=== PATIENT | female | born 1995 | race Caucasian/White ===

== ENCOUNTER 2019-11-12 05:55 | Inpatient (IN) ==
[2019-11-12] MEDS ORDERED: ONDANSETRON 4 MG/2 ML VIAL IV PRN (06:02)
[2019-11-12] MEDS ORDERED: BUTORPHANOL 2 MG/ML VIAL IV PRN (06:02)
[2019-11-12] MEDS ORDERED: MEPERIDINE 50 MG/1 ML VIAL IV PRN (06:02)
[2019-11-12] MEDS ORDERED: OXYTOCIN/LR 20 UNIT/1,000 ML BAG IV SCH (06:30)
[2019-11-12] MEDS: LACTATED RINGERS 1,000 ML IV PRN ×2 (06:36→14:55)
[2019-11-12 07:04] LABS: Basophils % 0.2 % (0.0-0.8); Eosinophils # 0.1 10*3/uL (0.0-0.87); Eosinophils % 1.3 % (0.00-10.9); Hematocrit 38.4 VOL% (35.7-47.0); Hemoglobin 12.9 GM/DL (12.0-16.0); Immature Granulocytes % 0.4 %; Immature Granulocytes Absolute 0.04 #; Lymphocytes # 1.7 10*3/uL (1.4-4.0); Lymphocytes % 18.6 % (21.3-54.2); Mean Corpuscular HGB Conc 33.6 GM/DL (32-36); Mean Corpuscular Volume 89.1 FL (87-102); Mean Platelet Volume 11.8 FL (9.6-12.0); Monocytes % 6.9 % (1.7-12.7); Neutrophils % 72.6 % (38.7-73.9); Platelet Count 199 T/CUMM (130-400); Red Blood Count 4.31 MC/CUMM (3.8-5.5); Red Cell Distribution Width 12.8 % (9.3-17.3); White Blood Count 8.9 T/CUMM (4-12)
[2019-11-12 07:31] LABS: Albumin 2.7 G/DL (3.4-5.0); Bilirubin,Total 0.7 MG/DL (0.2-1.0); Osmolality,Calculated 273.5 MOS/KG (273-304); Total Protein 6.6 G/DL (6.4-8.3)
[2019-11-12] MEDS ORDERED: PROMETHAZINE 25 MG/1 ML VIAL IM ONE (08:51)
[2019-11-12] MEDS ORDERED: ONDANSETRON 4 MG/2 ML VIAL IV ONE (08:51)
[2019-11-12] MEDS ORDERED: NALOXONE 0.4 MG/ML VIAL IV PRN (08:51)
[2019-11-12] MEDS ORDERED: ePHEDrine 50 MG/ML VIAL IV PRN (08:51)
[2019-11-12] MEDS ORDERED: FAMOTIDINE 20 MG/2 ML VIAL IV ONE (08:51)
[2019-11-12] MEDS ORDERED: hydrOXYzine HCL 25 MG/1 ML VIAL IM PRN (08:51)
[2019-11-12] MEDS ORDERED: diphenhydrAMINE 50 MG/1 ML VIAL IV PRN ×2 (08:51)
[2019-11-12] MEDS ORDERED: LACTATED RINGERS 1,000 ML IV ONE (08:51)
[2019-11-12] MEDS ORDERED: CITRIC ACID/SODIUM CITRATE 30 ML UDCUP PO ONE (08:51)
[2019-11-12] MEDS: fentaNYL 2 MCG/ROPIV 0.2% EPID 100 ML EPIDURAL SCH ×2 (09:55→18:31)
[2019-11-12 11:17] LABS: Apearance,Urine CLEAR (Clear); Bilirubin,Urine Negative (Negative); Blood, Urine Negative (Negative); Glucose,Urine (UA) Negative (Negative); Ketones,Urine 20 mg/dL (Negative); Mucus,Urine Few /LPF (Occasional); Nitrite,Urine Negative (Negative); Protein,Urine Negative; Urine Color Yellow (Yellow); Urine Specific Gravity 1.009 (1.001-1.035); Urine Urobilinogen < 2.0 EU/DL (0.2-1.0); WBC,Urine 1 /HPF (0-6)
[2019-11-12] MEDS ORDERED: ACETAMINOPHEN 500 MG TABLET PO PRN (18:38)
[2019-11-12] MEDS ORDERED: miSOPROStoL 200 MCG TABLET ONE (22:54)
[2019-11-13] MEDS ORDERED: CARBOPROST TROMETHAMINE 250 MCG/ML AMP IM ONE (01:22)
[2019-11-13] MEDS ORDERED: ceFAZolin 2,000 MG in PREMIX 1 EACH IV ONE (01:50)
[2019-11-13] MEDS ORDERED: MAGNESIUM HYDROXIDE SUSP 30 ML UDCUP PO PRN (02:56)
[2019-11-13] MEDS ORDERED: RHO(D) IMMUNE GLOBULIN 300 MCG SYRINGE IM ONE (02:56)
[2019-11-13] MEDS ORDERED: SIMETHICONE CHEW 80 MG TABLET PO PRN (02:56)
[2019-11-13] MEDS ORDERED: ACETAMINOPHEN 325 MG TABLET PO PRN (02:56)
[2019-11-13] MEDS ORDERED: OXYTOCIN/LR 20 UNIT/1,000 ML BAG IV ONE (02:56)
[2019-11-13] MEDS ORDERED: ONDANSETRON 4 MG/2 ML VIAL IV PRN (02:56)
[2019-11-13] MEDS ORDERED: oxyCODONE/ACETAMINOPHEN 5-325 MG TABLET PO PRN (02:58)
[2019-11-13] MEDS ORDERED: LACTATED RINGERS 1,000 ML IV SCH (03:00)
[2019-11-13] MEDS ORDERED: PHENYLEPHRINE 1 MG/10 ML SYRINGE IV ONE (03:07)
[2019-11-13] MEDS ORDERED: LIDOCAINE MPF 2% /EPI 20 ML VIAL ONE (03:08)
[2019-11-13] MEDS ORDERED: fentaNYL 100 MCG/2 ML VIAL ONE (03:08)
[2019-11-13 03:38] LABS: Cord Venous Blood PCO2 41.2 MMHG
[2019-11-13] MEDS: HYDROmorphone 2 MG/1 ML VIAL IV PRN ×2 (05:43→08:16)
[2019-11-13] MEDS: DOCUSATE SODIUM 100 MG CAPSULE PO SCH ×2 (09:40→20:25)
[2019-11-13] MEDS ORDERED: SODIUM CHLORIDE 0.9% 50 ML IV ONE (09:50)
[2019-11-13] MEDS: ceFAZolin 1,000 MG in SYRINGE 1 EACH IV SCH ×2 (10:10→18:57)
[2019-11-13] MEDS: MULTIVITAMIN (PRENATAL) TABLET PO SCH (10:49)
[2019-11-13 11:22] LABS: Basophils % 0.2 % (0.0-0.8); Eosinophils % 0.1 % (0.00-10.9); Hematocrit 30.2 VOL% (35.7-47.0); Immature Granulocytes % 0.6 %; Immature Granulocytes Absolute 0.11 #; Lymphocytes # 1.1 10*3/uL (1.4-4.0); Lymphocytes % 6.2 % (21.3-54.2); Mean Corpuscular HGB Conc 33.8 GM/DL (32-36); Mean Corpuscular Volume 89.6 FL (87-102); Mean Platelet Volume 11.7 FL (9.6-12.0); Monocytes % 6.6 % (1.7-12.7); Neutrophils % 86.3 % (38.7-73.9); Red Cell Distribution Width 12.8 % (9.3-17.3)
[2019-11-13 11:23] LABS: Red Blood Count 3.37 MC/CUMM (3.8-5.5); White Blood Count 17.9 T/CUMM (4-12)
[2019-11-13 11:24] LABS: Hemoglobin 10.2 GM/DL (12.0-16.0); Platelet Count 151 T/CUMM (130-400)
[2019-11-13] MEDS: oxyCODONE/ACETAMINOPHEN 5-325 MG TABLET PO PRN ×2 (12:30→23:10)
[2019-11-13] MEDS: KETOROLAC 30 MG/1 ML VIAL IV SCH ×2 (14:56→20:25)
[2019-11-14] MEDS: KETOROLAC 30 MG/1 ML VIAL IV SCH ×2 (03:20→10:22)
[2019-11-14 06:01] LABS: Basophils % 0.2 % (0.0-0.8); Eosinophils # 0.1 10*3/uL (0.0-0.87); Hematocrit 27.8 VOL% (35.7-47.0); Hemoglobin 9.4 GM/DL (12.0-16.0); Immature Granulocytes % 0.8 %; Lymphocytes # 1.4 10*3/uL (1.4-4.0); Lymphocytes % 11.4 % (21.3-54.2); Mean Corpuscular HGB Conc 33.8 GM/DL (32-36); Mean Corpuscular Volume 89.1 FL (87-102); Mean Platelet Volume 12.1 FL (9.6-12.0); Monocytes % 6.7 % (1.7-12.7); Neutrophils % 79.9 % (38.7-73.9); Platelet Count 136 T/CUMM (130-400); Red Blood Count 3.12 MC/CUMM (3.8-5.5); Red Cell Distribution Width 13.2 % (9.3-17.3); White Blood Count 12.3 T/CUMM (4-12)
[2019-11-14 06:23] LABS: Microcytosis Slight; Platelet Estimate Adequate
[2019-11-14] MEDS: DOCUSATE SODIUM 100 MG CAPSULE PO SCH ×2 (09:01→20:55)
[2019-11-14] MEDS: MULTIVITAMIN (PRENATAL) TABLET PO SCH (09:01)
[2019-11-14] MEDS ORDERED: AZITHROMYCIN 250 MG TABLET PO ONE (15:36)
[2019-11-14] MEDS: IBUPROFEN 800 MG TABLET PO PRN (15:45)
[2019-11-14] MEDS: oxyCODONE/ACETAMINOPHEN 5-325 MG TABLET PO PRN (15:45)
[2019-11-15] MEDS: IBUPROFEN 800 MG TABLET PO PRN (03:20)
[2019-11-15] MEDS: oxyCODONE/ACETAMINOPHEN 5-325 MG TABLET PO PRN (03:21)
[2019-11-15 08:02] VITALS: BP 110/76
[2019-11-15] MEDS ORDERED: AZITHROMYCIN 250 MG TABLET PO SCH (09:00)
[2019-11-15] MEDS: MULTIVITAMIN (PRENATAL) TABLET PO SCH (10:45)
[2019-11-15] MEDS: DOCUSATE SODIUM 100 MG CAPSULE PO SCH (11:02)
== END 2019-11-15 11:40 | disposition home or self-care (01) | DRG 788 ==
LOC: N.LDOUT 05:55 → N.LD 05:56 → N.OB 11-13 09:30
PROVIDERS: ADMIT Obstetrics & Gynecology; ATTEND Obstetrics & Gynecology
PROC: LDCSECT (ICD-10-PCS; 2019-11-13 02:00)